=== PATIENT | male | born 1995 | race Caucasian/White ===

== ENCOUNTER 2022-08-21 19:55 | Emergency (ER) | payer BC ==
[2022-08-21] MEDS ORDERED: Tetracaine HCl/PF 0.5% 4 ML Bottle EYEBOTH ONE (19:56)
[2022-08-21] MEDS ORDERED: valACYclovir 500 MG Tab PO ONE (21:18)
[2022-08-21] MEDS ORDERED: Cephalexin 500 MG Cap PO ONE (21:19)
== END 2022-08-21 21:45 | disposition home or self-care (01) ==
LOC: MW.ED 19:55
DX: B02.39 Other herpes zoster eye disease (principal); L03.115 Cellulitis of right lower limb; Z88.1 Allergy status to other antibiotic agents; Z88.2 Allergy status to sulfonamides
CPT/HCPCS: 99283; A9270; J3490